=== PATIENT | male | born 1950 | race Caucasian/White ===

== ENCOUNTER 2019-02-06 19:29 | Emergency (ER) | payer OTHER ==
[~2019-02-06] VITALS: Ht 167.6 cm; Wt 65.8 kg
[~2019-02-06 19:29] MED LIST: ASPI-498 OR; DOCU-94 PO; FER325T PO; PRED-559 PO
[2019-02-06] MEDS ORDERED: SODIUM CHLORIDE 0.9% 1,800 ML IV ONE (19:45)
[2019-02-06 20:26] LABS: Hematocrit 34.4 % (41.0-53.0); Platelet Count (auto) 183 10^3/uL (140-450); Red Blood Cells 3.84 10^6/uL (4.5-5.90); White Blood Cell 18.1 10^3/uL (4.4-10.8)
[2019-02-06 20:27] LABS: Hemoglobin 10.6 g/dL (13.5-17.5); Mean Corpuscular Hemoglobin 27.6 pg (28.0-32.0); Mean Corpuscular Hgb Conc. 30.8 g/dL (32.0-36.0); Mean Corpuscular Volume 89.5 fL (80.0-100.0); Red Cell Distribution Width 18.6 % (11.8-14.3)
[2019-02-06 20:33] LABS: Band Neutrophils % (manual) 0; Basophils % (manual) 0 (0.0-2.0); Blast Cells 0; Eosinophils % (manual) 0 (0-7); Metamyelocytes % 0; Myelocytes % 0; Promyelocytes % 0
[2019-02-06 20:43] LABS: Albumin 2.2 g/dL (3.4-5.0); Anion Gap 7 (5-15); BUN/Creatinine Ratio 23.8; Blood Urea Nitrogen 36 mg/dL (7-18); Carbon Dioxide 26 mmol/L (21-32); Chloride 103 mmol/L (98-107); GFR African American 59 mL/min; GFR Non-African American 49 mL/min; Glucose 122 mg/dL (74-106); Sodium 136 mmol/L (136-145)
[2019-02-06 20:54] LABS: Aspartate Aminotransferase 17 U/L (15-37)
[2019-02-06 20:55] LABS: Alanine Aminotransferase 14 U/L (16-61); Alkaline Phosphatase 122 U/L (45-117); Bilirubin, Total 0.3 mg/dL (0.2-1.0)
[2019-02-06 21:01] LABS: CRP High Sensitivity 11.5 mg/dL (< 0.3)
[2019-02-06 21:15] LABS: Urine Bacteria NONE SEEN /hpf (None Seen); Urine Blood 3+ /uL (Negative); Urine Mucus FEW (None Seen); Urine Specific Gravity 1.019 (1.001-1.035); Urine WBC 2282 /hpf (0 - 3)
[2019-02-06 21:15] LABS: INR 0.97 (0.9-1.15); Partial Thromboplastin Time 24.1 sec (23.64-32.05)
[2019-02-06 21:59] LABS: Lymphocytes % (manual) 20 (10.0-50.0); Monocytes % (manual) 1 (0-12); Reactive Lymphocytes 7
[2019-02-07 08:00] VITALS: BP 99/63
== END 2019-02-07 11:00 | disposition hospice, home (50) ==
LOC: EDBD 19:29 → ER 19:29
DX: Z46.6 Encounter for fitting and adjustment of urinary device (principal); R41.82 Altered mental status, unspecified; I10 Essential (primary) hypertension; Z88.0 Allergy status to penicillin
CPT/HCPCS: 36415; 36600; 71045; 80053; 81001; 82140; 82553; 82805; 83605; 83880; 84484; 85007; 85027; 85384; 85610; 85730; 86141; 87040; 87086; 96360; 99285; J7030; 93005